=== PATIENT | female | born 2000 | race Caucasian/White ===

== ENCOUNTER 2021-06-04 23:07 | Emergency (ER) | payer MEDICAID, OTHER ==
[~2021-06-04] VITALS: Ht 157.5 cm; Wt 81.6 kg
[2021-06-05 00:03] LABS: Basophils # (auto) 0.1 10 ^3/uL (0-0.2); Eosinophils # (auto) 0.1 10 ^3/uL (0-0.8); Eosinophils % (auto) 0.8 % (0.0-7.0); Hemoglobin 15.3 g/dL (12.2-16.2); Lymphocytes # (auto) 1.4 10 ^3/uL (0.4-5.4); Lymphocytes % (auto) 17.1 % (10.0-50.0); Mean Corpuscular Hemoglobin 29.9 pg (28.0-32.0); Monocytes # (auto) 0.5 10 ^3/uL (0-1.3); Monocytes % (auto) 6.1 % (0.0-12.0); Neutrophils # (auto) 5.9 10 ^3/uL (1.6-8.6); Red Blood Cells 5.12 10^6/uL (4.0-5.20); Red Cell Distribution Width 14.4 % (11.8-14.3); White Blood Cell 7.9 10^3/uL (4.4-10.8)
[2021-06-05 00:33] LABS: Potassium 3.8 mmol/L (3.5-5.1)
[2021-06-05 00:37] LABS: Albumin 4.3 g/dL (3.4-5.0); BUN/Creatinine Ratio 8.5; Calcium 9.5 mg/dL (8.5-10.1)
[2021-06-05 00:40] LABS: Bilirubin, Total 1.2 mg/dL (0.2-1.0); Total Protein 8.1 g/dL (6.4-8.2)
[2021-06-05 04:40] VITALS: BP 145/89
== END 2021-06-05 04:51 | disposition left against medical advice (07) ==
LOC: ER 23:07
DX: F10.239 Alcohol dependence with withdrawal, unspecified (principal); R07.9 Chest pain, unspecified; R10.9 Unspecified abdominal pain; Z53.21 Procedure and treatment not carried out due to patient leaving prior to being seen by health care provider; Y90.0 Blood alcohol level of less than 20 mg/100 ml
CPT/HCPCS: 36415; 80053; 80320; 85025; 93005

== ENCOUNTER 2023-12-22 11:49 | Emergency (ER) | payer MEDICAID ==
[~2023-12-22] VITALS: Ht 160 cm; Wt 72.7 kg
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
--- NOTE | 2023-12-22 13:44 | DVH ---
OB ULTRASOUND <14 WEEKS: HISTORY: cramping TECHNIQUE: Multiple real-time grayscale sonographic images of the pelvis with duplex Doppler color f low, spectral and M-mode analysis. TRANSDUCERS: Transabdominal. FINDINGS: The uterus measures 11.7 x 9.6 x 8.9 cm. The cervix not well visualized. Right ovary is not well visualized. Left ovary measures 2.7 x 1.6 x 2.3 cm with normal Doppler color flow IUP single live fetus at 13 weeks 2 days average ultrasound age based on mean crown-rump length of 7. 1 cm and gestational sac size of 6.4 cm heart rate detected at 163 beats per minute. Yolk sac visualized. Small subchorionic hematoma measuring 1.4 cm. IMPRESSION: IUP single live fetus 13 weeks 2 days AUA corresponding to an TONG of 06/27/2023. Small subchorionic hematoma measuring 1.4 cm.
[2023-12-22 14:24] LABS: Urine Bacteria FEW /hpf (None Seen); Urine Blood Negative /uL (Negative); Urine Clarity Turbid (Clear); Urine Color Yellow (Yellow); Urine Mucus FEW (None Seen); Urine Protein, UAD TRACE (Negative); Urine Specific Gravity 1.021 (1.001-1.035); Urine Urobilinogen Normal (Negative); Urine WBC 9 /hpf (0 - 5)
[2023-12-22] MEDS ORDERED: CEPH250C PO (14:53)
[2023-12-22 15:40] VITALS: BP 111/55; PULSE 70; RESP 16; O2SAT 100
== END 2023-12-22 15:45 | disposition home or self-care (01) ==
LOC: EDBD 11:49 → ER 11:49
DX: O46.8X1 Other antepartum hemorrhage, first trimester (principal); R10.2 Pelvic and perineal pain; O23.41 Unspecified infection of urinary tract in pregnancy, first trimester; Z3A.13 13 weeks gestation of pregnancy
CPT/HCPCS: 36415; 76801; 81001; 84702